=== PATIENT | male | born 1995 | race Hispanic/Latino ===

== ENCOUNTER 2016-07-30 19:36 | Emergency (ER) | payer OTHER ==
[2016-07-30 19:44] VITALS: BP 124/75
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
[2016-07-30] MEDS ORDERED: NAPROSYN500 M1 PO (20:07)
[2016-07-30] MEDS ORDERED: CYCLOBENZAPRINE10 M1 PO (20:07)
== END 2016-07-30 20:30 ==
LOC: ERH 19:36
DX: S29.012A Strain of muscle and tendon of back wall of thorax, initial encounter (principal); V49.40XA Driver injured in collision with unspecified motor vehicles in traffic accident, initial encounter